=== PATIENT | female | born 2000 | race Caucasian/White ===

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

== ENCOUNTER 2019-05-03 10:08 | Emergency (ER) | payer BC ==
[~2019-05-03] VITALS: Ht 160 cm; Wt 111.2 kg
[~2019-05-03 10:08] MED LIST changes: +ATARAX 10MG10 MG/TAB PO; +ATARAX 25MG25 MG/TAB PO; +CELEXA40 MG PO; +COLACE 100100 MG/CAP PO; +DULCOLAX TAB5 MG PO; +LEVSIN0.125 M1 PO; +MELATONIN5 M1 SL; +PHENERGAN 25 TA25 MG PO; +RITALIN 20M20 MG/TAB PO; +RITALIN LA20 MG PO; +RITALIN10 MG PO; +SEASONIQUE1 TAB PO; +ZYRTEC ALLERGY10 MG PO
[2019-05-03 10:12] VITALS: BP 138/85; TEMP 98.9
[2019-05-03] MEDS ORDERED: AMOXICILLIN 8751 TAB PO (11:36)
[2019-05-03 11:40] VITALS: PULSE 79
== END 2019-05-03 11:40 | disposition home or self-care (01) ==
LOC: COL.ER 10:08
DX: S61.451A Open bite of right hand, initial encounter (principal); K58.9 Irritable bowel syndrome, unspecified; W54.0XXA Bitten by dog, initial encounter